=== PATIENT | female | born 1980 | race American Indian/Alaskan Native ===

== ENCOUNTER 2018-10-15 18:01 | Emergency (ER) | payer OTHER ==
[2018-10-15 18:09] VITALS: O2SAT 100
--- NOTE | 2018-10-15 18:42 | C.PDOC ---
History Of Present Illness Patient is a 38 year old who presents to the ED for evaluation of a abdominal hernia that the patient noticed 1 day ago. Patient states that 3 days ago she was doing yoga and felt abdominal discomfort above her umbilical area. She st ates that the area was sore and 1 day ago she noticed a lump that was getting bigger and becoming tender so she went to an urgent care [facility] where she was diagnosed with a hernia. Patient was sent here for further evaluation. Time Seen by Provider: 10/15/18 18:15 Chief Complaint (Nursing): Abdominal Pain History Per: Patient History/Exam Limitations: no limitations Onset/Duration Of Symptoms: Days (3) Current Symptoms Are (Timing): Still Present Recent travel outside of the [place]: No Additional History Per: Patient Past Medical History Reviewed: Historical Data, Nursing Documentation, Vital Signs Vital Signs: Last Vital Signs Temp 98.5 F 10/15/18 18:07 Pulse 79 10/15/18 18:07 Resp 16 10/15/18 18:07 BP 112/78 10/15/18 18:07 Pulse Ox 100 10/15/18 18:07 Primary Care Provider: Irwin Brooks Surg - Medical History PMH: Asthma, COPD, Mitral Valve Prolapse Surgical History: No Surg Hx Family History: States: No Known Family Hx - Social History Hx Tobacco Use: Yes Hx Alcohol Use: No Hx Substance Use: Yes - Immunization History Hx Tetanus Toxoid Vaccination: No Review Of Systems Constitutional: Negative for: Fever, Chills Cardiovascular: Negative for: Chest Pain Respiratory: Negative for: Shortness of Breath Gastrointestinal: Positive for: Abdominal Pain (discomfort above the umbilical area). Negative for: Nausea, Vomiting Physical Exam - Physical Exam Appears: Non-toxic, No Acute Distress Skin: Warm, Dry Head: Atraumatic, Normacephalic Eye(s): bilateral: Normal Inspection Gastrointestinal/Abdominal: Soft, No Tenderness, Other (palpable mass superior to umbilicus, partially reducible ) Neurological/Psych: Oriented x3, Normal Speech, Normal Cognition ED Course And Treatment - Laboratory Results Result Diagrams: 10/15/18 19:05 10/15/18 19:05 Lab Interpretation: Normal O2 Sat by Pulse Oximetry: 100 (on RA) Pulse Ox Interpretation: Normal - CT Scan/US Ct abd/pelvis Other Rad Studies (CT/US): Read By Radiologist, Radiology Report Reviewed CT/US Interpretation: EXAM: CT Abdomen and Pelvis without IV contrast. CLINICAL HISTORY: Abdomen pain. TECHNIQUE: Axial computed tomography images of the abdomen and pelvis without intravenous contrast. 0.00 mGy-cm. CONTRAST: Without. COMPARISON: None provided. FINDINGS: LUNG BASES: 6 mm nodule noted in the RML. There are no additional nodules or masses noted. Follow up study is recommended in 6 months. Small fat-containing umbilical hernia is noted. Scarring is seen in the right middle lobe, lingula and lung bases. LIVER: Unremarkable. GALLBLADDER AND BILE DUCTS: The gallbladder appears within normal limits. No radioopaque gallstones are seen. No biliary ductal dilatation is evident. PANCREAS: Unremarkable. SPLEEN: Unremarkable. ADRENAL GLANDS: Unremarkable. KIDNEYS, URETERS, AND BLADDER: The kidneys appear within normal limits. There is no hydronephrosis or hydroureter. No urinary calculi are seen. STOMACH AND BOWEL: The stomach is distended. Thick walled fluid filled duodenum and loops of jejunum as well as ileum compatible with enteritis. Infectious and inflammatory etiologies are considered. Consider consultation with GI service. APPENDIX: No evidence of acute appendicitis on CT examination. PERITONEUM: No free fluid. No free air. LYMPH NODES: No lymphadenopathy is evident. REPRODUCTIVE: Unremarkable as visualized. VASCULATURE: No evidence of abdominal aortic aneurysm. BONES: No aggressive appearing osseous lesion. No acute osseous pathology evident. IMPRESSION: MISCELLANEOUS: 6 mm nodule noted in the RML. Follow up study is recommended in 6 months. Small fat-containing umbilical hernia is noted. Scarring is seen in the right middle lobe, lingula and lung bases. Enteritis. Infectious and inflammatory etiologies are considered. Consider consultation with GI service. Small fat-containing umbilical hernia is noted. . Electronically signed on October 15, 2018 9:32:04 PM EDT by: Gigi Pichardo M.D., M.B.A., Certified By [employer]. Fellowship Trained MRI and CT Specialist Reevaluation Time: 21:56 Reassessment Condition: Improved Medical Decision Making Medical Decision Making: Plan: CAT A&P Labs UA Disposition Counseled Patient/Family Regarding: Studies Performed, Diagnosis, Need For Followup - Disposition Referrals: Jone Islas MD [Staff Provider] - Disposition: HOME/ ROUTINE Disposition Time: 21:57 Condition: STABLE Instructions: Abdominal Wall Hernias Forms: [employer] (Ukrainian) - Clinical Impression Clinical Impression: Hernia, epigastric - Scribe Statement The provider has reviewed the documentation as recorded by the Bárbara Encarnacion All medical record entries made by the Bárbara were at my direction and personally dictated by me. I have reviewed the chart and agree that the record accurately reflects my personal performance of the history, physical exam, medical decision making, and the department course for this patient. I have also personally directed, reviewed, and agree with the discharge instructions and disposition.
[2018-10-15 19:19] LABS: BASO % 0.8 % (0.0-2.0); EOS # 0.2 K/uL (0.0-0.7); EOS % 3.5 % (0.0-4.0); HEMOGLOBIN 12.3 g/dL (11.0-16.0); LYMPH # 2.4 K/uL (1.0-4.3); LYMPH % 45.7 % (20.0-40.0); MEAN CELL VOLUME 88.4 fL (81.0-99.0); MEAN CORPUSCULAR HEMOGLOBIN 28.8 pg (27.0-31.0); MEAN CORPUSCULAR HGB CONC 32.6 g/dL (33.0-37.0); MONO # 0.5 K/uL (0.0-0.8); MONO % 9.2 % (0.0-10.0); NEUT # 2.2 K/uL (1.8-7.0); NEUT % 40.8 % (50.0-75.0); RBC 4.27 Mil/uL (3.80-5.20); RED CELL DISTRIBUTION WIDTH 14.7 % (11.5-14.5); WHITE BLOOD COUNT 5.3 K/uL (4.8-10.8)
[2018-10-15 19:29] LABS: ALB/GLOB RATIO 1.6 (1.0-2.1); ALBUMIN 4.2 g/dL (3.5-5.0); ALT/SGPT 19 U/L (9-52); AST/SGOT 26 U/L (14-36); BLOOD UREA NITROGEN 11 mg/dL (7-17); CALCIUM 9.5 mg/dl (8.6-10.4); GFR NON-AFRICAN AMERICAN > 60; LIPASE 115 U/L (23-300)
[2018-10-15 22:02] VITALS: BP 144/99; PULSE 63; RESP 14; TEMP 97.9
--- NOTE | 2018-10-16 11:08 | CT ---
Date of service: 10/15/2018 PROCEDURE: CT Abdomen and Pelvis without intravenous contrast HISTORY: Abdominal pain COMPARISON: None. TECHNIQUE: Multiple contiguous axial images were performed through the abdomen and pelvis without the use of intravenous contrast. Subsequently, sagittal and coronal reformatted images were obtained. Radiation dose: Total exam DLP = 398.84 mGy-cm. This CT exam was performed using one or more of the following dose reduction techniques: Automated exposure control, adjustment of the mA and/or kV according to patient size, and/or use of iterative reconstruction technique. FINDINGS: LOWER THORAX: 6 millimeter pulmonary nodule within the right middle lobe on series 3, image 9. Mild scattered atelectasis at the lung bases. LIVER: Unremarkable. No gross lesion or ductal dilatation. GALLBLADDER AND BILE DUCTS: Small mucosal outpouching and or fold at the level of the gallbladder head measuring 7.7 millimeters. This may be better delineated with an ultrasound. PANCREAS: Unremarkable. No gross lesion or ductal dilatation. SPLEEN: Unremarkable. ADRENALS: Unremarkable. No mass. KIDNEYS AND URETERS: Unremarkable. No hydronephrosis. No solid mass. VASCULATURE: Unremarkable. No aortic aneurysm. No aortic atherosclerotic calcification or mural plaque present. BOWEL: Few mildly thickened and distended loops of small bowel in the upper mid abdomen, nonspecific. Clinical correlation to exclude possible enteritis. Fecal retention in the colon. Diverticulosis. APPENDIX: Unremarkable. Normal appendix. PERITONEUM: Unremarkable. No free fluid. No free air. LYMPH NODES: Unremarkable. No enlarged lymph nodes. BLADDER: Unremarkable. REPRODUCTIVE: Unremarkable. BONES: No acute fracture. OTHER FINDINGS: Small fat containing umbilical hernia. IMPRESSION: 1. Few mildly thickened and distended loops of small bowel in the upper mid abdomen, nonspecific. Clinical correlation to exclude possible enteritis. 2. 6 millimeter pulmonary nodule within the right middle lobe of the lung on series 3, image 9. 3-6 month interval follow-up would be helpful if clinically indicated. 3. Small mucosal outpouching and or fold at the level of the gallbladder head measuring 7.7 millimeters. This may be better delineated with an ultrasound if clinically indicated. Clinical correlation. A preliminary report was generated at 9:32 p.m. on 10/15/[address] Gigi Pichardo from [id number]
== END 2018-10-15 22:13 | disposition home or self-care (01) ==
LOC: C.ER 18:01
DX: K43.9 Ventral hernia without obstruction or gangrene (principal)